=== PATIENT | female | born 1980 | race Caucasian/White ===

== ENCOUNTER 2017-03-25 10:50 | Outpatient (CLI) | payer BC | END 2017-03-25 20:04 | disposition home or self-care (01) | LOC: SRD 10:50 | PROVIDERS: ATTEND Obstetrics & Gynecology | DX: N83.02 Follicular cyst of left ovary (principal); N88.8 Other specified noninflammatory disorders of cervix uteri; Z90.710 Acquired absence of both cervix and uterus | CPT/HCPCS: 76830-TC; 76857 ==

== ENCOUNTER 2018-01-25 18:29 | Emergency (ER) | payer OTHER ==
[~2018-01-25] VITALS: Ht 162.6 cm; Wt 113.4 kg
[2018-01-25 18:30] VITALS: BP_SYST 119
[2018-01-25] MEDS ORDERED: fentaNYL CITRATE/PF 100 MCG/2 ML AMP IM ONE (20:45)
[2018-01-25 21:22] VITALS: BP_SYST 124
== END 2018-01-25 21:19 | disposition home or self-care (01) ==
LOC: SED 18:29
DX: S16.1XXA Strain of muscle, fascia and tendon at neck level, initial encounter (principal); G44.209 Tension-type headache, unspecified, not intractable; R11.0 Nausea; E11.9 Type 2 diabetes mellitus without complications; Z88.1 Allergy status to other antibiotic agents; Z88.8 Allergy status to other drugs, medicaments and biological substances; V89.2XXA Person injured in unspecified motor-vehicle accident, traffic, initial encounter; Y93.I9 Activity, other involving external motion; Y92.89 Other specified places as the place of occurrence of the external cause; Y99.8 Other external cause status
CPT/HCPCS: 96372; 99283; J3010

== ENCOUNTER 2018-07-25 17:23 | Emergency (ER) | payer OTHER ==
[~2018-07-25] VITALS: Ht 162.6 cm; Wt 116.1 kg
[2018-07-25 17:28] VITALS: BP_SYST 146
[2018-07-25] MEDS ORDERED: MORPHINE SULFATE 10 MG/ML VIAL IM ONE (18:15)
[2018-07-25] MEDS ORDERED: ONDANSETRON 4 MG ODT TAB PO ONE (18:15)
[2018-07-25 19:50] VITALS: BP_SYST 136
== END 2018-07-25 19:50 | disposition home or self-care (01) ==
LOC: SED 17:23
DX: M54.5 Low back pain (principal); E11.9 Type 2 diabetes mellitus without complications; R03.0 Elevated blood-pressure reading, without diagnosis of hypertension; Z98.84 Bariatric surgery status; Z90.710 Acquired absence of both cervix and uterus; Z91.011 Allergy to milk products
CPT/HCPCS: 81002; 81025; 96372; 99283; J2270; Q0162